=== PATIENT | male | born 1960 | race Caucasian/White ===

== ENCOUNTER 2022-11-05 22:24 | Emergency (ER) | payer BC ==
[~2022-11-05] VITALS: Ht 177.8 cm; Wt 64.4 kg
[2022-11-05] MEDS ORDERED: TDAP DIPH,PERTUSS,TET VAC/PF 0.5 ML DISP.SYRIN IM ONE ×2 (23:15→23:20)
[2022-11-05 23:27] VITALS: BP 120/80; O2SAT 99
== END 2022-11-05 23:27 | disposition home or self-care (01) ==
LOC: ER 22:24
DX: S61.211A Laceration without foreign body of left index finger without damage to nail, initial encounter (principal); W26.8XXA Contact with other sharp object(s), not elsewhere classified, initial encounter; Y93.89 Activity, other specified; Y92.89 Other specified places as the place of occurrence of the external cause; Y99.8 Other external cause status
CPT/HCPCS: 90715; A4663